=== PATIENT | female | born 1990 | race Caucasian/White ===

== ENCOUNTER → 2016-08-21 | Outpatient (REF) ==
[~2016-08-21] MED LIST: PRENATAL1 TA1 PO; PROTONIX 40MG T40 MG PO; ZITHROMAX 250M250 MG PO
== END ==
LOC: ZLAB.WCH 18:47
DX: Z01.89 Encounter for other specified special examinations (principal)

== ENCOUNTER → 2018-06-08 | Outpatient (CLI) | payer MEDICAID | LOC: COL.RAD 13:49 | DX: M79.89 Other specified soft tissue disorders (principal) ==

== ENCOUNTER 2018-07-09 09:57 | Outpatient (CLI) | payer MEDICAID ==
[~2018-07-09] VITALS: Ht 160 cm; Wt 87.7 kg
--- NOTE | 2018-07-09 10:00 | NUR ---
Pt arrives on unit ambulatory with spouse. States ctx that began at 0545 that occur q 3 minutes and are 6/10 pain scale. Changed into clean gown. EFM and toco applied. VSS. SVE per this RN . Admission assessment completed. Dr. Patel notified. See physician notification. Pt updated on POC. Safety reviewed. Bed locked in low position. Call light within reach. No questions or concerns at this time.
[2018-07-09 10:32] LABS: COLLECTION METHOD CLEAN CATCH
[2018-07-09 10:38] LABS: PH 7 (5-8); URINE APPEARANCE Clear; URINE BACTERIA Rare /hpf; URINE BILIRUBIN Negative (NEGATIVE); URINE BLOOD 1+ (NEGATIVE); URINE COLOR Straw; URINE GLUCOSE Negative (NEGATIVE); URINE KETONE Negative (NEGATIVE); URINE LEUKOCYTE ESTERASE Negative (NEGATIVE); URINE NITRATE Negative (NEGATIVE); URINE PROTEIN(semi-quant) Negative (NEGATIVE); URINE RBC 0-2 /hpf; URINE UROBILINOGEN Negative (NEGATIVE); URINE WBC 0-2 /hpf
[2018-07-09 10:50] VITALS: BP 132/68; PULSE 113; TEMP 98.5
[2018-07-09 12:15] VITALS: BP 127/68; PULSE 101
[2018-07-09 13:15] VITALS: BP 129/63; PULSE 122
--- NOTE | 2018-07-09 13:27 | NUR ---
OBEYE unchanged. Dr. Patel notified. Orders for discharge. Pt taken off monitors. Discharge instructions given. No questions or concerns at this time. Pt leaves unit ambulatory with spouse.
== END 2018-07-09 13:28 | disposition home or self-care (01) ==
LOC: LDRO 09:57
PROVIDERS: Obstetrics & Gynecology
DX: O62.9 Abnormality of forces of labor, unspecified (principal); Z3A.36 36 weeks gestation of pregnancy
CPT/HCPCS: J3105

== ENCOUNTER 2018-07-30 05:18 | Inpatient (IN) | payer MEDICAID ==
[2018-07-30] VITALS (18 sets, daily range): BP systolic 97–118; BP diastolic 54–80; PULSE 76–108; TEMP 98.1–98.4
[~2018-07-30] VITALS: Ht 160 cm; Wt 89.5 kg
[2018-07-30 06:43] LABS: BASO % 0.2 % (0.0-2.0); EOS # 0.6 (0.0-0.7); EOS % 3.7 % (0-4.0); GRAN # 11.8 (1.4-6.5); GRAN % 73.2 % (42.2-75.2); HEMATOCRIT 30.3 % (37.0-47.0); HEMOGLOBIN 9.6 g/dl (12.5-16.0); LYMPH # 2.2 (1.2-3.4); LYMPH % 13.8 % (20.0-51.0); MEAN CELL VOLUME 82 fl (80.0-100.0); MEAN CORPUSCULAR HEMOGLOBIN 26 pg (27.0-31.0); MEAN CORPUSCULAR HGB CONC 32 g/dl (33.0-37.0); MEAN PLATELET VOLUME 11.3 fl (7.4-10.4); MONO # 1.1 (0.1-0.6); MONO % 6.8 % (1.7-9.3); PLATELET COUNT 205 K/mm3 (130-400); REDCELL DISTRIBUTION WIDTH-CV 14.3 % (11.5-14.5)
--- NOTE | 2018-07-30 06:44 | NUR ---
0620 CARE ASSUMED FROM PREVIOUS RN AND ASSESSMENT STARTED. 0645 ASSESSMENT COMPLETED PLAN OF CARE DISCUSSED.
[2018-07-30] MEDS ORDERED: MOTRIN 800800 MG/TAB PO (07:11)
[2018-07-30] MEDS ORDERED: PERCOCET 325 MG1 TA2 PO (07:11)
--- NOTE | 2018-07-30 10:41 | NUR ---
0907 INFANT STILL NURSING WELL, PT RE-ORIENTATED TO SURROUNDING. SCD'S ON AND WORKING. MONITORS IN PLACE.
--- NOTE | 2018-07-30 10:42 | NUR ---
0930 DONE NURSING AND TO DAD'S ARMS. JUICE PROVIDED AND WATER ALSO
--- NOTE | 2018-07-30 10:43 | NUR ---
1000 NUMEROUS FAMILY MEMEBERS IN AND OUT OF ROOM TO SEE PT AND . PT DENIES NEEDS AT PRESENT TIME.
--- NOTE | 2018-07-30 11:00 | NUR ---
1015 CONTINUES TO VISIT WITH FAMILY
--- NOTE | 2018-07-30 16:41 | NUR ---
MEDICATED WITH PERCOCET 2 TABS FOR COMPLAINTS OF RIGHT SIDED ABD PAIN.
[2018-07-31 05:33] VITALS: BP 98/48; PULSE 73; TEMP 98.8
[2018-07-31 07:33] VITALS: BP 90/51; PULSE 73; TEMP 97.7
[2018-07-31 07:50] LABS: HEMATOCRIT 27.3 % (37.0-47.0); HEMOGLOBIN 8.6 g/dl (12.5-16.0)
[2018-07-31 16:17] VITALS: BP 100/51; PULSE 86; TEMP 98.5
[2018-07-31 21:00] VITALS: BP 113/62; PULSE 86; TEMP 98.2
--- NOTE | 2018-08-01 10:36 | NUR ---
Visited the patient and congratulated her on behalf of [place]
[2018-08-01 20:30] VITALS: BP 106/51; PULSE 97; TEMP 98
[2018-08-02 08:00] VITALS: BP 128/76; PULSE 82; TEMP 99.1
== END 2018-08-02 12:45 | disposition home or self-care (01) | DRG 788 ==
LOC: OB 05:18
PROVIDERS: ADMIT Obstetrics & Gynecology
PROC: 10D00Z1 Extraction of Products of Conception, Low, Open Approach (ICD-10-PCS; principal; 2018-07-30)
DX: O34.211 Maternal care for low transverse scar from previous cesarean delivery (principal); Z3A.39 39 weeks gestation of pregnancy; Z37.0 Single live birth; O99.284 Endocrine, nutritional and metabolic diseases complicating childbirth; E03.9 Hypothyroidism, unspecified; O43.199 Other malformation of placenta, unspecified trimester; Z79.52 Long term (current) use of systemic steroids; Z88.1 Allergy status to other antibiotic agents; Z88.0 Allergy status to penicillin; F32.9 Major depressive disorder, single episode, unspecified; O99.02 Anemia complicating childbirth
CPT/HCPCS: J0690; J1885; J2175; J2250; J2370; J2405; J2590; J3010; J7120

== ENCOUNTER 2020-09-01 08:07 | Inpatient (IN) | payer MEDICAID ==
[2020-09-01] VITALS (16 sets, daily range): BP systolic 93–124; BP diastolic 41–85; PULSE 68–98; TEMP 97.7–98.1
[~2020-09-01] VITALS: Ht 160 cm; Wt 91.8 kg
[~2020-09-01 08:07] MED LIST changes: +MOTRIN 800800 MG/TAB PO; +PERCOCET 325 MG1 TA2 PO
[2020-09-01 15:55] LABS: BASO % 0.3 % (0.0-2.0); EOS # 0.4 (0.0-0.7); EOS % 3.4 % (0-4.0); GRAN # 8.6 (1.4-6.5); GRAN % 74.8 % (42.2-75.2); LYMPH # 1.6 (1.2-3.4); MEAN CELL VOLUME 79 fl (80.0-100.0); MEAN CORPUSCULAR HGB CONC 30 g/dl (33.0-37.0); MEAN PLATELET VOLUME 10.8 fl (7.4-10.4); MONO # 0.8 (0.1-0.6); MONO % 6.8 % (1.7-9.3); PLATELET COUNT 182 K/mm3 (130-400); RED BLOOD COUNT 4.04 M/mm3 (4.10-5.30); REDCELL DISTRIBUTION WIDTH-CV 15.5 % (11.5-14.5)
[2020-09-01 16:01] LABS: HEMOGLOBIN 9.6 g/dl (12.5-16.0); MEAN CORPUSCULAR HEMOGLOBIN 24 pg (27.0-31.0)
[2020-09-01] MEDS ORDERED: PERCOCET 325 MG1 TA2 PO (19:58)
[2020-09-01] MEDS ORDERED: MOTRIN 800800 MG/TAB PO (19:58)
[2020-09-02 00:45] VITALS: BP 113/53; PULSE 73; TEMP 97.5
[2020-09-02 04:25] VITALS: BP 108/52; PULSE 74; TEMP 97.7
[2020-09-02 08:30] VITALS: BP 101/48; PULSE 75; TEMP 98.2
--- NOTE | 2020-09-02 12:51 | NUR ---
Veterinary Poultry Inspector offered congrats to patient.
[2020-09-02 17:28] VITALS: BP 106/58; PULSE 72; TEMP 97.8
[2020-09-02 19:30] VITALS: BP 99/58; PULSE 77; TEMP 98.2
[2020-09-03 09:40] VITALS: BP 107/52; PULSE 82; TEMP 98.2
[2020-09-03 14:57] VITALS: BP 107/49; PULSE 77; TEMP 98.8
[2020-09-03 19:30] VITALS: BP 120/58; PULSE 79; TEMP 98.3
[2020-09-04 08:00] VITALS: BP 116/69; PULSE 80; TEMP 98.3
--- NOTE | 2020-09-04 10:27 | NUR ---
Initial visit; Parents thanked Hardening Machine Operator for offering Congratulations and God's blessings for the of their daughter. Hardening Machine Operator thanked family for choosing [facility].
== END 2020-09-04 10:45 | disposition home or self-care (01) | DRG 788 ==
LOC: OB 08:07
PROVIDERS: ADMIT Obstetrics & Gynecology
PROC: 10D00Z1 Extraction of Products of Conception, Low, Open Approach (ICD-10-PCS; principal; 2020-09-01)
DX: O34.211 Maternal care for low transverse scar from previous cesarean delivery (principal); O99.344 Other mental disorders complicating childbirth; F32.9 Major depressive disorder, single episode, unspecified; F41.9 Anxiety disorder, unspecified; O99.214 Obesity complicating childbirth; O99.02 Anemia complicating childbirth; D64.9 Anemia, unspecified; O99.284 Endocrine, nutritional and metabolic diseases complicating childbirth; E03.9 Hypothyroidism, unspecified; Z3A.39 39 weeks gestation of pregnancy; Z37.0 Single live birth; Z88.0 Allergy status to penicillin
CPT/HCPCS: J0690; J1100; J1885; J2370; J2405; J2590; J7120